=== PATIENT | male | born 1995 | race Two or more races ===

== ENCOUNTER 2018-05-17 12:51 | Emergency (ER) | payer OTHER ==
[2018-05-17 13:00] VITALS: BP 116/73
--- NOTE | 2018-05-17 13:56 | EDPHY ---
H & P Stated Complaint: c/o neck and back pain, had N/V/D 2 days ago none now. Time Seen by Provider: 05/17/18 13:55 - Personal History Current Tetanus Diphtheria and Acellular Pertussis (TDAP): Yes - Medical/Surgical History Hx Asthma: No Hx Chronic Respiratory Disease: No Hx Diabetes: No Hx Cardiac Disease: No Hx Renal Disease: No Hx Cirrhosis: No Hx Alcoholism: No Hx HIV/AIDS: No Hx Splenectomy or Spleen Trauma: No Other PMH: hypothyroid, migraines - Social History Smoking Status: Never smoked Constitutional: Initial Vital Signs Temperature (C) 36.7 C 05/17/18 12:56 Heart Rate 80 05/17/18 12:56 Respiratory Rate 18 05/17/18 12:56 Blood Pressure 116/73 05/17/18 12:56 O2 Sat (%) 97 05/17/18 12:56 O2 Delivery Mode Room Air Allergies/Adverse Reactions: No Known Allergies Allergy (Unverified 05/17/18 12:54) Home Medications: Medication Instructions Recorded Cyproheptadine HCl 05/17/18 Ibuprofen 05/17/18 Ibuprofen [Motrin] 800 mg PO Q8 #20 tab 05/17/18 Levothyroxine 05/17/18 Medical Decision Making ED Course/Re-evaluation: CHIEF COMPLAINT: Right trapezius pain HISTORY OF PRESENT ILLNESS: Healthy 22-year-old male who had food poisoning a couple of days ago. He had numerous episodes of vomiting and diarrhea. He had some neck muscle pain yesterday when his symptoms were resolving that when he woke up this morning his right trapezius pain which is fairly significant. He thinks he just injury date from retching so much but his mother encouraged him to come to the emergency department get checked out. Patient denies fevers or chills. Patient denies any more nausea vomiting diarrhea. Patient feels completely fine and normal. REVIEW OF SYSTEMS: A 10 point review of systems was performed and is negative with the exception of the elements mentioned in the history of present illness. PHYSICAL EXAM: HR, BP, O2 Sat, RR. Temp noted General Appearance: Alert, well hydrated, appropriate, and non-toxic appearing. Head: Atraumatic without scalp tenderness or obvious injury Eyes: Pupils equal, round, reactive to light and accommodation, EOMI, no trauma , no injection. Ears: Clear bilaterally, no perforation, normal landmarks Nose: Atraumatic, no rhinorrhea, clear. Throat: There is no erythema or exudates, no lesions, normal tonsils, mucus membranes moist. Neck: Supple, 2+ carotid upstroke, nontender, no lymphadenopathy. Respiratory: No retractions, no distress, no wheezes, and no accessory muscle use. Lungs are clear to auscultation bilaterally. Cardiovascular: Regular rate and rhythm, no murmurs, rubs, or gallops. Bilateral carotid, radial, dorsalis pedis, and posterior tibial pulses intact. Good capillary refill all extremities. Gastrointestinal: Abdomen is soft, nontender, non-distended, no masses, no rebound, no guarding, no peritoneal signs. Musculoskeletal: Pain over the right trapezius especially with palpation and turning of the neck. No evidence of meningismus. Otherwise, Normal active ROM of all extremities, atraumatic. Neurological: Alert, appropriate, and interactive. The patient has normal DTRs and non-focal cranial nerves, motor, sensory, and cerebellar exam. Skin: No rashes, good turgor, no nodules on palpation. Past medical history: None Past surgical history: None Family history: Noncontributory Social history: Single, employed, does not abuse tobacco drugs or alcohol DIAGNOSTICS/PROCEDURES/CRITICAL CARE TIME: None necessary DIFFERENTIAL DIAGNOSIS: Includes but is not limited to: Neck strain, neck sprain, meningitis, jumped facet, osseous injury MEDICAL DECISION MAKING: This patient has a mild strain of his right trapezius from violent vomiting a couple days ago when he had food poisoning. He feels completely better has no systemic illness. I can palpate the right trapezius and cause him to almost jump off the bed. I have given this patient some Vicodin and Motrin and he will follow up with regular doctor. There is no evidence of meningismus or any infectious process. Departure - Departure Disposition: Home, Routine, Self-Care Clinical Impression: Neck muscle strain Qualifiers: Encounter type: initial encounter Qualified Code(s): S16.1XXA - Strain of muscle, fascia and tendon at neck level, initial encounter Condition: Good Instructions: Cervical Strain (ED) Referrals: LISSY MOONEY [Other] - As per Instructions Prescriptions: Ibuprofen [Motrin] 800 mg PO Q8 #20 tab
[2018-05-17] MEDS ORDERED: HYDROCOD/APAP 5/325 PREPACK#6 BTL TAKEHOME ONE (14:05)
== END 2018-05-17 14:24 | disposition home or self-care (01) ==
DX: S16.1XXA Strain of muscle, fascia and tendon at neck level, initial encounter (principal); X58.XXXA Exposure to other specified factors, initial encounter